=== PATIENT | female | born 1935 | race Caucasian/White ===

== ENCOUNTER 2021-12-25 15:49 | Emergency (ER) | payer MEDICARE ==
[~2021-12-25] VITALS: Ht 170.2 cm; Wt 75.9 kg
[2021-12-25] MEDS ORDERED: SODIUM CHLORIDE 0.9% 500ML 500 ML IV STA (16:20)
[2021-12-25] MEDS ORDERED: SODIUM CHLORIDE 0.9% 250ML 250 ML IV ONE (16:30)
[2021-12-25] MEDS ORDERED: SODIUM CHLORIDE FLUSH 10 ML SYR INJ PRN (16:45)
[2021-12-25] MEDS ORDERED: PANTOPRAZOLE SO40 MG PO ×2 (17:08→17:51)
[2021-12-25] MEDS ORDERED: SPIRONOLACTONE25 MG PO (17:51)
[2021-12-25] MEDS ORDERED: FEROSUL325 MG PO (17:51)
[2021-12-25] MEDS ORDERED: LASIX20 MG PO (17:51)
[2021-12-25] MEDS ORDERED: LEXAPRO20 MG PO (17:51)
== END 2021-12-25 17:18 | disposition home or self-care (01) ==
LOC: FSED 16:20
DX: R06.02 Shortness of breath (principal); I50.9 Heart failure, unspecified; K92.2 Gastrointestinal hemorrhage, unspecified; R94.31 Abnormal electrocardiogram [ECG] [EKG]; Z20.822 Contact with and (suspected) exposure to COVID-19
CPT/HCPCS: 80053; 81003; 82553; 83880; 84484; 85025; 86850; 86900; 99284; U0002; 86920

== ENCOUNTER 2022-02-07 15:30 | Emergency (ER) | payer MEDICARE ==
[~2022-02-07] VITALS: Ht 170.2 cm; Wt 75.9 kg
[~2022-02-07 15:30] MED LIST: FEROSUL325 MG PO; LASIX20 MG PO; LEXAPRO20 MG PO; PANTOPRAZOLE SO40 MG PO; SPIRONOLACTONE25 MG PO
[2022-02-07] MEDS ORDERED: PYRIDIUM100 MG PO (16:13)
[2022-02-07] MEDS ORDERED: CEFDINIR300 MG PO (16:13)
[2022-02-07] MEDS ORDERED: CEFTRIAXONE 1 GM VIAL IM ONE (16:15)
[2022-02-07] MEDS ORDERED: CEFTRIAXONE 1 GM VIAL ONE (16:24)
== END 2022-02-07 16:26 | disposition home or self-care (01) ==
LOC: FSED 16:00
DX: N30.00 Acute cystitis without hematuria (principal); I10 Essential (primary) hypertension; I25.2 Old myocardial infarction; I25.10 Atherosclerotic heart disease of native coronary artery without angina pectoris; K44.9 Diaphragmatic hernia without obstruction or gangrene; K21.9 Gastro-esophageal reflux disease without esophagitis; Z79.899 Other long term (current) drug therapy; Z95.810 Presence of automatic (implantable) cardiac defibrillator
CPT/HCPCS: 81003; 96372; 99283; J0696

== ENCOUNTER 2022-04-30 17:01 | Emergency (ER) | payer MEDICARE ==
[~2022-04-30] VITALS: Ht 170.2 cm; Wt 74.0 kg
[~2022-04-30 17:01] MED LIST changes: +CEFDINIR300 MG PO; +PYRIDIUM100 MG PO
[2022-04-30] MEDS ORDERED: LISINOPRIL2.5 MG PO (17:27)
[2022-04-30] MEDS ORDERED: METOPROLOL SUCC25 MG PO (17:27)
[2022-04-30] MEDS ORDERED: ATORVASTATIN CA10 MG PO (17:27)
[2022-04-30] MEDS ORDERED: BENADRYL25 M1 PO (17:27)
[2022-04-30] MEDS ORDERED: ACETAMINOPHEN500 MG PO (17:31)
[2022-04-30] MEDS ORDERED: PROBIOTIC & AC1 EACH PO (17:31)
[2022-04-30] MEDS ORDERED: CEFDINIR300 MG PO (17:31)
[2022-04-30] MEDS ORDERED: PHENAZOPYRIDIN100 MG PO (17:31)
== END 2022-04-30 17:39 | disposition home or self-care (01) ==
LOC: FSED 17:19
DX: R30.0 Dysuria (principal); N30.00 Acute cystitis without hematuria; I10 Essential (primary) hypertension; E78.5 Hyperlipidemia, unspecified; I25.10 Atherosclerotic heart disease of native coronary artery without angina pectoris; K21.9 Gastro-esophageal reflux disease without esophagitis; I25.2 Old myocardial infarction; Z95.810 Presence of automatic (implantable) cardiac defibrillator
CPT/HCPCS: 81003; 99283

== ENCOUNTER 2022-05-25 18:00 | Emergency (ER) | payer MEDICARE ==
[~2022-05-25] VITALS: Ht 170.2 cm; Wt 74.4 kg
[~2022-05-25 18:00] MED LIST changes: +ACETAMINOPHEN500 MG PO; +ATORVASTATIN CA10 MG PO; +BENADRYL25 M1 PO; +LISINOPRIL2.5 MG PO; +METOPROLOL SUCC25 MG PO; +PHENAZOPYRIDIN100 MG PO; +PROBIOTIC & AC1 EACH PO
[2022-05-25] MEDS ORDERED: CEFUROXIME500 MG PO (19:04)
[2022-05-25 19:15] VITALS: BP 151/81
== END 2022-05-25 19:15 | disposition home or self-care (01) ==
LOC: FSED 18:05
DX: R30.0 Dysuria (principal); N39.0 Urinary tract infection, site not specified; I50.9 Heart failure, unspecified; I10 Essential (primary) hypertension; E78.5 Hyperlipidemia, unspecified; K21.9 Gastro-esophageal reflux disease without esophagitis; I25.10 Atherosclerotic heart disease of native coronary artery without angina pectoris; Z86.79 Personal history of other diseases of the circulatory system; Z95.810 Presence of automatic (implantable) cardiac defibrillator
CPT/HCPCS: 87086; 87186; 99282

== ENCOUNTER 2023-02-16 13:43 | Emergency (ER) | payer MEDICARE ==
[~2023-02-16] VITALS: Ht 170.2 cm; Wt 72.6 kg
[~2023-02-16 13:43] MED LIST changes: +CEFUROXIME500 MG PO
[2023-02-16 14:00] VITALS: O2SAT 98
[2023-02-16] MEDS ORDERED: CEFUROXIME500 MG PO (14:18)
[2023-02-16] MEDS ORDERED: PYRIDIUM200 MG PO (14:19)
[2023-02-21] MEDS ORDERED: CEFDINIR300 MG PO (11:43)
[2023-02-21] MEDS ORDERED: PYRIDIUM200 MG PO (11:46)
== END 2023-02-16 14:51 | disposition home or self-care (01) ==
LOC: FSED 13:48
DX: N39.0 Urinary tract infection, site not specified (principal); K21.9 Gastro-esophageal reflux disease without esophagitis; E78.5 Hyperlipidemia, unspecified; Z87.440 Personal history of urinary (tract) infections; I25.10 Atherosclerotic heart disease of native coronary artery without angina pectoris; I11.0 Hypertensive heart disease with heart failure; I50.9 Heart failure, unspecified
CPT/HCPCS: 81003; 87086; 87186; 99282

== ENCOUNTER 2024-05-06 14:00 | Emergency (ER) | payer MEDICARE ==
[~2024-05-06] VITALS: Ht 170.2 cm; Wt 71.2 kg
[~2024-05-06 14:00] MED LIST changes: +ASPIRIN EC81 MG PO; +CICLOPIROX15 GM TOP; +FAMOTIDINE20 MG PO; +PYRIDIUM200 MG PO
[2024-05-06] MEDS ORDERED: PYRIDIUM200 MG PO (14:24)
[2024-05-06] MEDS ORDERED: LIDOCAINE HCL 1% LOCAL INJ 20 ML VIAL ONE (14:37)
[2024-05-06] MEDS: CEFTRIAXONE 1 GM VIAL IM ONE (14:54)
[2024-05-06] MEDS: ACETAMINOPHEN 325 MG TAB PO ONE (14:55)
[2024-05-06 15:20] VITALS: PULSE 71; RESP 18; TEMP 98.9; O2SAT 95
== END 2024-05-06 15:25 | disposition home or self-care (01) ==
LOC: FSED 14:04
DX: R30.0 Dysuria (principal); N30.00 Acute cystitis without hematuria; I10 Essential (primary) hypertension; I50.9 Heart failure, unspecified; I25.10 Atherosclerotic heart disease of native coronary artery without angina pectoris; E78.5 Hyperlipidemia, unspecified; K21.9 Gastro-esophageal reflux disease without esophagitis; I25.2 Old myocardial infarction; Z95.810 Presence of automatic (implantable) cardiac defibrillator
CPT/HCPCS: 81003; 87086; 87186; 99283; J0696; J2001

== ENCOUNTER 2024-07-31 10:42 | Emergency (ER) | payer MEDICARE ==
[~2024-07-31] VITALS: Ht 170.2 cm; Wt 63.0 kg
[2024-07-31 10:47] VITALS: PULSE 86; RESP 18; TEMP 97.6
[2024-07-31 11:26] LABS: BASOPHILS % 0.4 % (0.0-1.0); EOSINOPHILS # (AUTO) 0.1 (0.0-0.4); EOSINOPHILS % 2.8 % (0.0-6.0); HEMATOCRIT 39.6 % (34.2-44.1); HEMOGLOBIN 12.1 g/dL (12.0-16.0); LYMPHOCYTES # (AUTO) 0.6 (1.0-3.2); LYMPHOCYTES % 12.4 % (18.0-39.1); MEAN CORPUSCULAR HEMOGLOBIN 28.7 pg (28-32); MEAN CORPUSCULAR HGB CONC 30.6 g/dL (31-35); MEAN CORPUSCULAR VOLUME 94.1 fL (81-99); MONOCYTES # (AUTO) 0.5 (0.2-0.8); MONOCYTES % 10.2 % (4.4-11.3); NEUTROPHILS # (AUTO) 3.7 (2.1-6.9); NEUTROPHILS % 73.8 % (38.7-80.0); PLATELET COUNT 210 x10e3/uL (140-360); RED BLOOD COUNT 4.21 x10e6/uL (3.6-5.1); RED CELL DISTRIBUTION WIDTH 17.6 % (11.7-14.4)
[2024-07-31] MEDS: ONDANSETRON HCL INJ 2MG/ML 2ML 2 MG/ML VIAL IV PRN (11:44)
[2024-07-31] MEDS: DICYCLOMINE HCL 20 MG/2 ML VIAL IM ONE (11:44)
[2024-07-31] MEDS: SODIUM CHLORIDE 0.9% 500ML 500 ML IV STA (11:44)
[2024-07-31 11:56] LABS: ALBUMIN 3.5 g/dL (3.5-5.0); ANION GAP 17.7 mmol/L (8-16); BILIRUBIN,TOTAL 0.9 mg/dL (0.2-1.2); CALCIUM 9.6 mg/dL (8.4-10.2); CREATININE, SERUM 0.73 mg/dL (0.57-1.11); POTASSIUM 3.7 mmol/L (3.5-5.1); TOTAL PROTEIN 7.1 g/dL (6.5-8.1)
[2024-07-31] MEDS ORDERED: BELLADONNA ALK/PHENOBARBITAL 5 ML UDC PO STA (12:08)
[2024-07-31 12:13] LABS: BILIRUBIN,URINE NEGATIVE (NEGATIVE); CLARITY,URINE CLEAR (CLEAR); COLOR,URINE YELLOW (YELLOW); GLUCOSE, URINE NEGATIVE (NEGATIVE); KETONES,URINE NEGATIVE (NEGATIVE); LEUKOCYTE ESTERASE ,URINE NEGATIVE (NEGATIVE); NITRITE,URINE NEGATIVE (NEGATIVE); PH,URINE 5.5 (5 - 7); PROTEIN,URINE DIPSTICK 1+ (NEGATIVE); URINE UROBILINOGEN 0.2 mg/dL (0.2 - 1)
[2024-07-31 12:14] LABS: BACTERIA,URINE FEW /HPF; EPITHELIAL CELLS,URINE RARE /LPF; RBC,URINE 0-5 /HPF (0-5); WBC,URINE (MAN) 0-5 /HPF (0-5)
[2024-07-31] MEDS ORDERED: IOPAMIDOL 370 MG/ML 100 ML INFUS..BTL INJ ONE (12:14)
[2024-07-31] MEDS ORDERED: FENTANYL CITRATE/PF 100MCG/2 ML INJ IV PRN (12:15)
[2024-07-31] MEDS: BELLADONNA ALK/PHENOBARBITAL 5 ML UDC PO ONE (14:52)
[2024-07-31] MEDS: MAGNESIUM/ALUMINUM/SIMETHICONE 30 ML UDC PO ONE (14:53)
[2024-07-31] MEDS: LIDOCAINE VISC 2% SOLN 15 ML UDC PO ONE (14:53)
[2024-07-31 15:00] VITALS: BP 120/85; PULSE 80; RESP 16; TEMP 97.5; O2SAT 98
[2024-07-31] MEDS ORDERED: LIDOCAINE VISC 2% SOLN 15 ML UDC PO ONE (15:15)
[2024-07-31] MEDS ORDERED: MAGNESIUM/ALUMINUM/SIMETHICONE 30 ML UDC PO ONE (15:15)
== END 2024-07-31 15:02 | disposition home or self-care (01) ==
LOC: ER 11:11
DX: R10.12 Left upper quadrant pain (principal); K44.9 Diaphragmatic hernia without obstruction or gangrene; R11.0 Nausea; I10 Essential (primary) hypertension; I50.9 Heart failure, unspecified; I25.10 Atherosclerotic heart disease of native coronary artery without angina pectoris; E78.5 Hyperlipidemia, unspecified; K21.9 Gastro-esophageal reflux disease without esophagitis; R94.31 Abnormal electrocardiogram [ECG] [EKG]; I25.2 Old myocardial infarction; Z95.810 Presence of automatic (implantable) cardiac defibrillator
CPT/HCPCS: 36415; 74177; 80053; 81001; 83690; 84484; 85025; 93005; 99284; J0500; J2405; J7040; Q9967

== ENCOUNTER 2024-08-10 11:58 | Emergency (ER) | payer MEDICARE | END 2024-08-10 14:16 | disposition short-term general hospital (02) | LOC: ER 12:28 | DX: I50.9 Heart failure, unspecified (principal) | CPT/HCPCS: 93005 ==

== ENCOUNTER 2024-09-27 10:57 | Emergency (ER) | payer MEDICARE ==
[~2024-09-27] VITALS: Ht 160 cm; Wt 56.0 kg
[2024-09-27] MEDS ORDERED: IOPAMIDOL 370 MG/ML 100 ML INFUS..BTL INJ ONE (11:46)
[2024-09-27] MEDS: DICYCLOMINE HCL 20 MG/2 ML VIAL IM ONE (11:50)
[2024-09-27] MEDS: CITRATE OF MAGNESIA 300ML BOTTLE PO ONE (15:08)
[2024-09-27] MEDS: MINERAL OIL 132 ML BTL PR ONE (15:09)
[2024-09-27 16:08] VITALS: PULSE 96; RESP 16; TEMP 97.7; O2SAT 95
[2024-09-27] MEDS ORDERED: CLOPIDOGREL75 MG PO (19:03)
[2024-09-27] MEDS ORDERED: PROAIR RESPICL90 MCG PO (19:03)
[2024-09-27] MEDS ORDERED: ACETAMINOPHEN-1 EAC4 (19:03)
== END 2024-09-27 17:56 | disposition home or self-care (01) ==
LOC: FSED 11:18
DX: R10.30 Lower abdominal pain, unspecified (principal); K59.00 Constipation, unspecified; I10 Essential (primary) hypertension; I50.9 Heart failure, unspecified; E78.5 Hyperlipidemia, unspecified; I25.10 Atherosclerotic heart disease of native coronary artery without angina pectoris; K21.9 Gastro-esophageal reflux disease without esophagitis; Z95.810 Presence of automatic (implantable) cardiac defibrillator
CPT/HCPCS: 74177; 80048; 85025; 99284; J0500; Q9967